=== PATIENT | male | born 1960 | race Caucasian/White ===

== ENCOUNTER 2019-09-09 05:54 | Day surgery (SDC) | payer BC ==
[2019-09-04 11:26] LABS: BASOPHILS % (AUTO) 0.7 % (0-1); EOSINOPHILS # (AUTO) 0.3 X10'3 (0-0.9); EOSINOPHILS % (AUTO) 7.1 % (0-6); LYMPHOCYTES # (AUTO) 0.8 X10'3 (1.1-4.8); LYMPHOCYTES % (AUTO) 21.5 % (21-51); MEAN CORPUSCULAR HEMOGLOBIN 30.5 PG (27.0-31.0); MEAN CORPUSCULAR HGB CONC 34.4 g/dL (33.0-36.5); MEAN CORPUSCULAR VOLUME 88.8 FL (78-98); MEAN PLATELET VOLUME 8.3 FL (7.4-10.4); MONOCYTES # (AUTO) 0.4 X10'3 (0-0.9); MONOCYTES % (AUTO) 11.5 % (2-12); NEUTROPHILS # (AUTO) 2.3 X10'3 (1.8-7.7); NEUTROPHILS % (AUTO) 59.2 % (42-75); PRE OP HEMATOCRIT 38.4 % (42.0-52.0); PRE OP HEMOGLOBIN 13.2 g/dL (14.0-17.9); PRE OP PLATELET COUNT 198 X10'3 (140-440); RED BLOOD COUNT 4.32 X10'6 (4.70-6.10); RED CELL DISTRIBUTION WIDTH 14.2 % (11.5-14.5)
[2019-09-04 11:40] LABS: ALBUMIN 3.3 G/DL (3.4-5.0); ALBUMIN/GLOBULIN RATIO 0.8 (1.1-1.5); ALKALINE PHOSPHATASE 88 IU/L (46-116); BLOOD UREA NITROGEN 22 MG/DL (7-18); BUN/CREATININE RATIO 20.8 (5.4-32.0); CHLORIDE 104 MMOL/L (99-107); CREATININE 1.06 MG/DL (0.60-1.10); PRE OP ALT 37 U/L (30-65); PRE OP ANION GAP 7 (8-16); PRE OP AST 37 U/L (10-37); PRE OP BILIRUB, TOTAL 0.3 MG/DL (0.0-1.0); PRE OP GLUCOSE 102 MG/DL (70-104); PRE OP POTASSIUM 4.2 MMOL/L (3.4-5.1); PRE OP SODIUM 139 MMOL/L (135-145); TOTAL CARBON DIOXIDE 27.7 MMOL/L (24-32); TOTAL PROTEIN 7.7 G/DL (6.4-8.2); eGFR 71 ML/MIN
[2019-09-09] VITALS (8 sets, daily range): BP systolic 100–134; BP diastolic 68–90
[~2019-09-09] VITALS: Ht 180.3 cm; Wt 91.5 kg
[~2019-09-09 05:54] MED LIST: ALLO300T2 PO; LORA10TA61 PO; cefazolin/dext.iso 2gm/100ml 100 ML IV ONE; famotidine 20mg tablet PO ONE; ringers solution, lacted 1,000 ML IV SCH
[2019-09-09] MEDS ORDERED: LIDOcaine 1% (10mg/ml) 2ml vial ONE (06:32)
[2019-09-09] MEDS ORDERED: BUPIVAcaine/PF 2.5 mg/ml (0.25%) 30ml vial ONE (06:42)
[2019-09-09] MEDS ORDERED: LIDOcaine 1% 30ml preserv. free vial ONE (08:26)
[2019-09-09] MEDS ORDERED: fentaNYL/PF 50MCG/1 ML 2ML syringe ONE (08:30)
[2019-09-09] MEDS ORDERED: midazolam 2 mg/2 ml injection ONE (08:31)
[2019-09-09] MEDS ORDERED: propofol inj 20 ML IV ONE (08:31)
[2019-09-09] MEDS ORDERED: sevoflurane 250ml liquid IH ONE (08:37)
--- NOTE | 2019-09-09 09:18 | NUR ---
eceived from OR via NIA , accompanied by Anesthesiologist ARON and report given by Anesthesiolgist. PATIENT WITH 20G PIV IN RIGHT UE RUNNING LR AT 100. RIGHT UPPER BUTTOCK DRESSING IS CDI. VSS. Addendum: 09/09/19 at 0991 by Sonido Mcwilliams RN, RN Amended: Links added.
[2019-09-09] MEDS ORDERED: ringers solution, lacted 1,000 ML IV SCH (09:19)
[2019-09-09] MEDS ORDERED: ondansetron/PF 4mg/2ml inj IV PRN (09:20)
[2019-09-09] MEDS ORDERED: proCHLORperazine 10 MG/2 ml inj IV PRN (09:20)
[2019-09-09] MEDS ORDERED: morphine 4 MG/ML inj SYRINge IV PRN ×2 (09:20)
[2019-09-09] MEDS ORDERED: meperidine/PF 25mg/ml syringe IV PRN ×3 (09:20)
--- NOTE | 2019-09-09 10:28 | NUR ---
ALL DC CRITERIA HAS BEEN MET. IV TAKEN OUT WITHOUT COMPLICATIONS. ALL INSTRUCTIONS COVERED AND ALL QUESTIONS ANSWERED. DRESSINGS CDI. OUT VIA WHEELCHAIR TO PERSONAL VEHICLE WHERE PATIENT WAS SECURED IN AND DRIVEN HOME BY FAMILY. Addendum: 09/09/19 at 1034 by Sonido Mcwilliams RN, RN Amended: Links added.
== END 2019-09-09 10:28 | disposition home or self-care (01) ==
LOC: PAS 05:54
PROVIDERS: ATTEND Surgery
DX: D17.1 Benign lipomatous neoplasm of skin and subcutaneous tissue of trunk (principal); Z87.891 Personal history of nicotine dependence; Z79.899 Other long term (current) drug therapy; Z98.890 Other specified postprocedural states
CPT/HCPCS: 21931; 36415; 80053; 82948; 85025; 93005; J2001; J2250; J2704; J3010; J3490; A4215; A4618; A6449; A7000; J7120